=== PATIENT | male | born 1970 | race Caucasian/White ===

== ENCOUNTER 2021-03-09 07:43 | Emergency (ER) | payer OTHER ==
--- NOTE | 2021-03-09 08:33 | RAD REPORT ---
EXAM DESCRIPTION: RAD - Chest Single View - 03/09/2021 8:26 am CLINICAL HISTORY: DYSPNEA COMPARISON: No comparisons FINDINGS: Lines: None. Lungs: Patchy multifocal airspace disease, worse on the right side. Pleural: No significant pleural effusions or pneumothorax. Cardiac: The heart size is within normal limits. Bones: No acute fractures. Other: IMPRESSION: Bilateral airspace disease concerning for multifocal pneumonia, including Covid-19 .
[2021-03-09 09:00] LABS: Absolute Lymphocytes (CBC) 0.6 K/uL (0.7-4.9); Basophils % 0.3 % (0-1.3); Hematocrit 43.8 % (39.6-49.0); Lymphocytes % 10.1 % (15.3-44.8); MPV 9.2 fL (7.6-11.3); RBC Red Blood Cell Count 4.97 M/uL (4.33-5.43)
[2021-03-09 09:03] LABS: Protime INR 1.13
[2021-03-09 09:33] LABS: Albumin 2.9 g/dL (3.4-5.0); Bilirubin Direct 0.2 mg/dL (0-0.2); Bilirubin Total 0.3 mg/dL (0.2-1.0); C-Reactive Protein 61.5 mg/L (<3.00); Ferritin 601.3 ng/mL (26-388); Potassium 5.1 mmol/L (3.5-5.1); Protein, Total 6.9 g/dL (6.4-8.2); Troponin (Emerg Dept Use Only) 0.04 ng/mL (0.0-0.045)
[2021-03-09] MEDS ORDERED: NA CHLORIDE 0.9% 1,000 ML ONE (09:37)
--- NOTE | 2021-03-09 09:57 | RAD REPORT ---
EXAM DESCRIPTION: CT - Chest For Pe Angio - 03/09/2021 9:47 am CLINICAL HISTORY: COUGH COMPARISON: No comparisons FINDINGS: Chest Wall: No suspicious thyroid nodules or pathologic lymphadenopathy. Lungs: Mild to moderate patchy bilateral airspace disease. Pleura: No significant effusions or pneumothorax. Mediastinum/amado: No pathologic lymphadenopathy. Pulmonary arteries/Aorta: No filling defect identified. No aortic aneurysm. Heart: No significant pericardial effusion. Normal heart size. Upper abdomen: No acute abnormality. Bones: No acute abnormality. IMPRESSION: Negative for pulmonary embolism. Mild to moderate patchy bilateral airspace disease typi rogelio of Covid-19 pneumonia .
--- NOTE | 2021-03-09 10:09 | ER ---
Nurse's Notes [facility] Name: Martinez Pereira Age: 51 yrs Sex: Male : 1970 Arrival Date: 03/09/2021 Time: 07:47 Bed 30 Private MD: Diagnosis: Coronavirus infection, unspecified;Pneumonia due to SARS-associated coronavirus Presentation: 03/09 07:51 Chief complaint: Patient states: Covid positive, started getting sick . ll1 Bilateral pneumonia diagnosed at [place], also seen at [place]. Took Z-pack. Coronavirus screen: Client denies travel out of the [place] in the last 14 days. congestion, cough unrelated to allergies, difficulty breathing, fatigue, shortness of breath, Client presents with at least one sign or symptom that may indicate coronavirus-19. Standard/surgical mask placed on the client. Ebola Screen: Patient denies travel to an Ebola-affected area in the 21 days before illness onset. Resp Distress? Mild respiratory distress is noted. Initial Sepsis Screen: Does the patient meet any 2 criteria? No. Patient's initial sepsis screen is negative. Does the patient have a suspected source of infection? Yes: Productive cough/pneumonia. Risk Assessment: Do you want to hurt yourself or someone else? Patient reports no desire to harm self or others. Onset of symptoms was February 27, 2021. 07:51 Method Of Arrival: Wheelchair [facility] 07:51 Acuity: SAMUEL 3 ll1 Triage Assessment: 08:40 General: Appears in no apparent distress. Behavior is calm, cooperative, appropriate [facility] for age. Pain: Complains of pain in back Pain does not radiate. Pain currently is 6 out of 10 on a pain scale. Respiratory: No deficits noted. Reports shortness of breath at rest. 08:47 Respiratory: [facility] Historical: - Allergies: 07:54 No Known Allergies; ll1 - PMHx: 07:54 Diabetes mellitus; ll1 - PSHx: 07:54 None; ll1 - Immunization history:: Client reports having NOT received the Covid vaccine. Flu vaccine is not up to date. - Social history:: Smoking status: Patient denies any tobacco usage or history of. Screenin:46 Abuse screen: Denies threats or abuse. Nutritional screening: No deficits noted. kh1 Tuberculosis screening: No symptoms or risk factors identified. Fall Risk IV access (20 points). Assessment: 08:45 General: Appears in no apparent distress. comfortable. Cardiovascular: No deficits kh1 noted. Denies chest pain, lightheadedness, nausea. Respiratory: Airway is patent. Vital Signs: 07:51 BP 107 / 63; Pulse 83; Resp 22; Temp 97.9; Pulse Ox 92% ; Weight 74.84 kg; Height 6 ft. ll1 0 in. (182.88 cm); Pain 9/10; 08:40 BP 113 / 68; Pulse 86; Resp 18; Temp 97.6(O); Pulse Ox 96% on 2 lpm NC; kh1 07:51 Body Mass Index 22.38 (74.84 kg, 182.88 cm) ll1 ED Course: 07:47 Patient arrived in ED. ds1 07:49 Clarisa Leiva FNP-C is PHCP. kb 07:49 Lenny Trejo MD is Attending Physician. kb 07:51 Arm band placed on. ll1 07:54 Triage completed. ll1 08:26 CXR XRAY In Process Unspecified. EDMS 08:40 Birgit Ma is Primary Nurse. kh1 08:46 Patient has correct armband on for positive identification. Bed in low position. Call [facility] light in reach. Side rails up X 1. 08:46 Inserted saline lock: 20 gauge in right antecubital area, using aseptic technique. kh1 Blood collected. 08:47 No provider procedures requiring assistance completed. kh1 08:47 BMP Sent. kh1 08:47 C-Reactive Protein Sent. kh1 08:47 CBC with Diff Sent. kh1 08:48 D-Dimer Sent. kh1 08:48 Ferritin Sent. kh1 08:48 Flu Sent. kh1 08:48 LFT's Sent. kh1 08:48 Lipase Sent. kh1 08:48 PT-INR Sent. kh1 08:48 Procalcitonin Sent. kh1 08:48 Ptt, Activated Sent. kh1 08:48 Troponin (emerg Dept Use Only) Sent. kh1 09:47 CT Chest For PE Angio In Process Unspecified. EDMS Administered Medications: 09:24 Drug: NS 0.9% 1000 ml Route: IV; Rate: 1000 ml; Site: right antecubital; [facility] Outcome: 10:09 Discharge ordered by . kb 11:35 Patient left the ED. ss Signatures: Dispatcher [employer] EDMS Clarisa Leiva, [employer] INSPECTOR-Julieta Peralta ds1 Julianne Washington RN RN Margoth Guerrero RN RN ll1 Anil, Birgit [facility]
--- NOTE | 2021-03-09 10:09 | EDPHYS ---
Physician Documentation [facility] Name: Martinez Pereira Age: 51 yrs Sex: Male : 1970 Arrival Date: 03/09/2021 Time: 07:47 Bed 30 Private MD: ED Physician Lenny Trejo HPI: 03/09 09:21 This 51 yrs old Male presents to ER via Wheelchair with complaints of Cough, kb Congestion. 09:21 The patient or guardian reports cough, that is intermittent, described as mild, flu kb symptoms, low-grade fever, myalgias. Onset: The symptoms/episode began/occurred 11 day(s) ago. Severity of symptoms: At their worst the symptoms were moderate, in the emergency department the symptoms are unchanged. Modifying factors: The symptoms are alleviated by nothing, the symptoms are aggravated by nothing. Associated signs and symptoms: Pertinent positives: fever, Pertinent negatives: chest pain, diarrhea, ear ache, nausea, rhinorrhea, sore throat, vomiting. The patient has not experienced similar symptoms in the past. The patient has not recently seen a physician. Pt reports cough, congestion, fever, and malaise for 11 days. Was diagnosed with COVID on 02/27. States he felt really bad this morning so he went to [place]. Had a 103.9 temp and was given ibuprofen. States he feels much better now. Denies shortness of breath. States [place] sent him over here for admission and antibody infusion. . Historical: - Allergies: 07:54 No Known Allergies; ll1 - PMHx: 07:54 Diabetes mellitus; ll1 - PSHx: 07:54 None; ll1 - Immunization history:: Client reports having NOT received the Covid vaccine. Flu vaccine is not up to date. - Social history:: Smoking status: Patient denies any tobacco usage or history of. ROS: 09:27 Abdomen/GI: Negative for abdominal pain, nausea, vomiting, diarrhea, and constipation. kb 09:27 Constitutional: Positive for body aches, chills, fatigue, fever, malaise, poor PO intake. 09:27 ENT: Positive for sinus congestion. 09:27 Respiratory: Positive for cough, Negative for dyspnea on exertion, hemoptysis, orthopnea, pleurisy, shortness of breath, sputum production, wheezing. 09:27 All other systems are negative. Exam: 09:28 Constitutional: This is a well developed, well nourished patient who is awake, alert, kb and in no acute distress. Head/Face: Normocephalic, atraumatic. ENT: Moist Mucous membranes Cardiovascular: Regular rate and rhythm with a normal S1 and S2. No gallops, murmurs, or rubs. No pulse deficits. Respiratory: Respirations even and unlabored. No increased work of breathing, no retractions or nasal flaring. Skin: Warm, dry with normal turgor. Normal color. MS/ Extremity: Pulses equal, no cyanosis. Neurovascular intact. Full, normal range of motion. Neuro: Awake and alert, GCS 15, oriented to person, place, time, and situation. Moves all extremities. Normal gait. Psych: Awake, alert, with orientation to person, place and time. Behavior, mood, and affect are within normal limits. 09:28 ECG was reviewed by the Attending Physician. Vital Signs: 07:51 BP 107 / 63; Pulse 83; Resp 22; Temp 97.9; Pulse Ox 92% ; Weight 74.84 kg; Height 6 ft. ll1 0 in. (182.88 cm); Pain 9/10; 08:40 BP 113 / 68; Pulse 86; Resp 18; Temp 97.6(O); Pulse Ox 96% on 2 lpm NC; kh1 07:51 Body Mass Index 22.38 (74.84 kg, 182.88 cm) ll1 MDM: 07:57 Patient medically screened. kb 09:28 Data reviewed: vital signs, nurses notes. Data interpreted: Pulse oximetry: on room air kb is 94 %. Interpretation: normal. 10:07 Counseling: I had a detailed discussion with the patient and/or guardian regarding: the kb historical points, exam findings, and any diagnostic results supporting the discharge/admit diagnosis, lab results, radiology results, the need for outpatient follow up, a family practitioner, to return to the emergency department if symptoms worsen or persist or if there are any questions or concerns that arise at home. ED course: Pt's oxygen saturation 97-98% on room air. Pt states he is feeling good. Pt educated to purchase pulse ox and check it routinely. Verbal understanding received. . 03/09 07:57 Order name: CHETAN; Complete Time: 09:39 kb 09/07 07:57 Order name: C-Reactive Protein; Complete Time: 09:39 kb 03/09 07:57 Order name: CBC with Diff kb 0907 07:57 Order name: D-Dimer; Complete Time: 09:08 kb 03/09 07:57 Order name: Ferritin; Complete Time: 09:39 kb 03/09 07:57 Order name: Flu; Complete Time: 09:39 kb 03/09 07:57 Order name: LFT's; Complete Time: 09:39 kb 03/09 07:57 Order name: Lipase; Complete Time: 09:39 kb 03/09 07:57 Order name: PT-INR; Complete Time: 09:08 kb 03/09 07:57 Order name: Procalcitonin; Complete Time: 10:07 kb 03/09 07:57 Order name: Ptt, Activated; Complete Time: 09:08 kb 03/09 07:57 Order name: Troponin (emerg Dept Use Only); Complete Time: 09:39 kb 03/09 07:57 Order name: CXR XRAY; Complete Time: 08:53 kb 03/09 09:08 Order name: CT Chest For PE Angio; Complete Time: 09:59 kb 03/09 07:57 Order name: EKG; Complete Time: 07:59 kb 03/09 07:57 Order name: Cardiac monitoring; Complete Time: 08:47 kb 03/09 07:57 Order name: Droplet/Contact Precautions; Complete Time: 08:47 kb 03/09 07:57 Order name: EKG - Nurse/Tech; Complete Time: 09:24 kb 03/09 07:57 Order name: IV Start; Complete Time: 08:47 kb 03/09 07:57 Order name: Labs collected and sent; Complete Time: 08:47 kb 03/09 07:57 Order name: O2 Per Protocol; Complete Time: 08:47 kb 03/09 07:57 Order name: O2 Sat Monitoring; Complete Time: 08:47 kb 03/09 10:08 Order name: Misc. Order: ambulate pt and check sat kb EC: Rate is 71 beats/min. Rhythm is regular. QRS [place] is Normal. [place] interval is normal at kb 126 msec. QRS interval is normal at 100 msec. QT interval is normal at 404 msec. Administered Medications: :24 Drug: NS 0.9% 1000 ml Route: IV; Rate: 1000 ml; Site: right antecubital; kh1 Disposition: 03/10 08:28 Co-signature as Attending Physician, Lenny Trejo MD I agree with the assessment and merlin plan of care. Disposition Summary: 03/09/21 10:09 Discharge Ordered Location: Home kb Condition: Stable kb Diagnosis - Coronavirus infection, unspecified kb - Pneumonia due to SARS-associated coronavirus kb Followup: kb - With: Private Physician - When: 2 - 3 days - Reason: Recheck today's complaints, Continuance of care, Re-evaluation by your physician Followup: kb - With: Emergency Department - When: As needed - Reason: Worsening of condition Discharge Instructions: - Discharge Summary Sheet kb - Viral Respiratory Infection, [id number] kb - COVID-19 kb - COVID-19 Frequently Asked Questions kb - 10 Things You Can Do to Manage Your COVID-19 Symptoms at Home - [facility] kb Forms: - Medication Reconciliation Form kb - Thank You Letter kb - Antibiotic Education kb - Prescription Opioid Use kb Signatures: Dispatcher [employer] EDClarisa Aguiar, CERTIFIED OPHTHALMIC TECHNOLOGIST-C CERTIFIED OPHTHALMIC TECHNOLOGIST-Lenny Muniz MD MD cha Lewis, Lynsay, RN RN ll1 Birgit Ma [facility]
[2021-03-09 11:42] VITALS: BP 113/68; TEMP 97.6; O2SAT 96
[2021-03-09 13:27] LABS: Blood Morphology Comment NOT SEEN (NOT SEEN); Platelet Estimate ADEQ; Platelets, Giant FEW PRESENT; White Blood Cell Scan OK (OK)
--- NOTE | 2021-03-10 11:31 | EKG ---
Test Date: 2021-03-09 Test Time: 09:21:48 Appliquer Zigzag: SHELBY MEASUREMENT RESULTS: Intervals: Rate: 71 ND: 126 QRSD: 100 QT: 404 QTc: 439 [place]: P: 70 ND: 126 QRS: 34 T: 10 INTERPRETIVE STATEMENTS: Normal sinus rhythm Normal ECG No previous ECG available for comparison Electronically Signed On 03-10-21 11:27:07 CDT by Tad Larios
== END 2021-03-09 11:35 | disposition home or self-care (01) ==
LOC: ER 07:43
DX: U07.1 COVID-19 (principal); J12.82 Pneumonia due to coronavirus disease 2019; E11.9 Type 2 diabetes mellitus without complications
CPT/HCPCS: 93005; 85025; 80048; 36415; 85610; 85379; 80076; 85730; 84484; 82728; 83690; 84145; 86140; 87804 ×2; 71275; 71045; 99284; J7030

== ENCOUNTER 2024-08-14 10:28 | Emergency (ER) | payer OTHER, SELFPAY ==
[2024-08-14] MEDS ORDERED: NA CHLORIDE 0.9% 1,000 ML ONE (10:53)
[2024-08-14 11:23] LABS: Absolute Basophils 0.1 K/uL (0-0.5); Absolute Eosinophils 0.2 K/uL (0-0.5); Absolute Monocytes 0.6 K/uL (0.1-1.3); Basophils % 0.7 % (0-1.3); MCHC 34.9 g/dL (32.0-36.0); MPV 8.5 fL (7.6-11.3); Neutrophils % 65.8 % (41.7-73.7)
[2024-08-14 11:28] LABS: Absolute Lymphocytes (CBC) 1.9 K/uL (0.7-4.9); Absolute Neutrophil 5.3 K/uL (1.8-8.0); Eosinophils % 2.9 % (0-4.4); Hematocrit 44.1 % (39.6-49.0); Hemoglobin 15.4 g/dL (13.6-17.9); MCH 30.2 pg (27.0-35.0); MCV 86.4 fL (80-100); Monocytes % 7.6 % (3.3-12.3); Nucleated Red Blood Cells % 0.2 % (0-0); Platelets 313 thou/uL (152-406)
[2024-08-14 11:34] LABS: SARS-CoV-2 Antigen CONTROL BLUE LINE VIS/BG OK; SARS-CoV-2 Antigen Rapid Res Negative (Negative)
[2024-08-14 11:39] LABS: ALT/SGPT 17 U/L (16-61); Albumin 3.6 g/dL (3.4-5.0); Albumin/Globulin Ratio 0.9 (1.1-1.8); Alkaline Phosphatase 101 U/L (45-117); Anion Gap 8.1 mEq/L (5.0-15.0); BUN Blood Urea Nitrogen 13 mg/dL (7-18); Bicarbonate 31 mEq/L (21-32); Bilirubin Total 0.6 mg/dL (0.2-1.0); Globulin 4.1 g/dL (2.3-3.5); Glomerular Filtration Rate 76 ml/min (=/>90); Glucose Level 270 mg/dL (74-106); Potassium 4.1 mEq/L (3.5-5.1); Protein, Total 7.7 g/dL (6.4-8.2); Sodium Level 135 mEq/L (136-145)
[2024-08-14 11:40] LABS: AST/SGOT < 10 U/L (15-37)
--- NOTE | 2024-08-14 11:55 | RAD REPORT ---
EXAM: CT brain without contrast HISTORY: Headache COMPARISON: None TECHNIQUE: Multiple contiguous axial images were obtained and a CT of the brain without contrast.. Sagittal and coronal reconstruction performed. Automated exposure control, adjustment of the mA and/or kV according to patient size, and/or iterative reconstruction. Unless otherwise specified, incidental f indings do not require dedicated imaging follow-up FINDINGS: An intracranial bleed is not seen Ventricles are normal caliber No extra-axial fluid collection noted No significant hypodensity within the brain Left maxillary sinus almost completely opacified. IMPRESSION: No acute intracranial abnormality noted. Marked left maxillary sinusitis If the patient continues to have symptoms to suggest an acute intracranial abnormality then MRI of th e brain would be recommended.
--- NOTE | 2024-08-14 11:56 | RAD REPORT ---
EXAMINATION: CT MAXILLOFACIAL WITHOUT CONTRAST CLINICAL INDICATION: Headache and fever TECHNIQUE: Axial images were obtained through the facial bones and orbits without intravenous contras t. Sagittal and coronal reconstructions were created from the data. One or more of the following dose reduction techniques were used: Automated exposure control, adjustment of the mA and/or kV accor ding to patient size, and/or iterative reconstruction. Unless otherwise specified, incidental findings do not require dedicated imaging follow-up. COMPARISON: No prior exam. FINDINGS: Marked mucoperiosteal thickening left maxillary sinus. The ostiomeatal complex is occluded. Right maxillary, ethmoid, frontal and sphenoid sinuses clear. Right ostiomeatal complex patent Bilateral rossi bullosa. Nasal septum deviated towards the left. IMPRESSION: Marked chronic left maxillary sinusitis with occlusion of the left ostiomeatal complex
--- NOTE | 2024-08-14 12:03 | RAD REPORT ---
Procedure: Chest Pa And Lat (2 Views) HISTORY: Cough COMPARISON: 2020 FINDINGS: The lungs appear clear of acute infiltrate. No significant pleural effusion noted. The heart is normal size. IMPRESSION: No acute abnormality is displayed.
[2024-08-14] MEDS ORDERED: NA CHLORIDE 0.9% 100 ML ONE (14:05)
[2024-08-14] MEDS ORDERED: CEFTRIAXONE 1000 MG/VIAL ONE ×2 (14:05→15:35)
[2024-08-14] MEDS ORDERED: AMOX/K CLAV 875 MG TAB ONE (14:05)
--- NOTE | 2024-08-14 15:32 | ER ---
Nurse's Notes [facility] Name: Martinez Pereira Age: 54 yrs Sex: Male : 1970 Arrival Date: 08/14/2024 Time: 10:28 Bed 12 Private MD: Diagnosis: Acute maxillary sinusitis-OSTIOMEATAL COMPLEX IS OCCULDED;Dental root caries;Dental caries, unspecified;Type 2 diabetes mellitus with hyperglycemia Presentation: 08/14 10:53 Chief complaint: Patient states: Intermittent lightheadedness, SOB for the last week. jl7 Coronavirus screen: At this time, the client does not indicate any symptoms associated with coronavirus-19. Ebola Screen: No symptoms or risks identified at this time. Initial Sepsis Screen: Does the patient meet any 2 criteria? No. Patient's initial sepsis screen is negative. Does the patient have a suspected source of infection? No. Patient's initial sepsis screen is negative. Risk Assessment: Do you want to hurt yourself or someone else? Patient reports no desire to harm self or others. Onset of symptoms is unknown. 10:53 Method Of Arrival: Ambulatory [facility] 10:53 Acuity: SAMUEL 3 jl7 Triage Assessment: 10:55 General: Appears in no apparent distress. uncomfortable, Behavior is calm, cooperative, jl7 appropriate for age. Pain: Denies pain. Respiratory: Reports shortness of breath Onset: The symptoms/episode began/occurred at an unknown time. the patient has mild shortness of breath. Historical: - Allergies: 10:55 No Known Allergies; jl7 - Home Meds: 10:55 None [Active]; jl7 - PMHx: 10:55 diabetes mellitus; jl7 - PSHx: 10:55 None; jl7 - Immunization history:: Adult Immunizations unknown. - Infectious Disease History:: Denies. - Social history:: Smoking status: Patient denies any tobacco usage or history of. Screenin:08 [facility] ED Fall Risk Assessment (Adult) History of falling in the last 3 months, ll1 including since admission No falls in past 3 months (0 pts) Confusion or Disorientation No (0 pts) Intoxicated or Sedated No (0 pts) Impaired Gait No (0 pts) Mobility Assist Device Used No (0 pt) Altered Elimination No (0 pt) Score/Fall Risk Level 0 - 2 = Low Risk Oriented to surroundings, Maintained a safe environment. Abuse screen: Denies threats or abuse. Denies injuries from another. Nutritional screening: No deficits noted. Tuberculosis screening: No symptoms or risk factors identified. Assessment: 16:08 Reassessment: Patient appears in no apparent distress at this time. Patient and/or ll1 family updated on plan of care and expected duration. Pain level reassessed. Patient is alert, oriented x 3, equal unlabored respirations, skin warm/dry/pink. Patient states feeling better. Cardiovascular: Rhythm is regular. Respiratory: Airway is patent Respiratory effort is even, unlabored, Vital Signs: 10:53 BP 136 / 83; Pulse 103; Resp 17; Temp 98.5; Pulse Ox 98% ; Weight 77.11 kg; Height 6 jl7 ft. 0 in. ; Pain 0/10; 16:08 BP 135 / 75; Pulse 85; Resp 17; Pulse Ox 98% ; ll1 10:53 Body Mass Index 23.06 (77.11 kg, 182.88 cm) jl7 10:53 Pain Scale: Adult 7 NIH Stroke Scale Scores: 11:12 NIHSS Score: 0 [facility] ED Course: 10:30 Patient arrived in ED. im 10:48 Lenny Trejo MD is Attending Physician. merlin 10:55 Triage completed. jl7 10:55 Arm band placed on right wrist. jl7 10:56 Patient placed in waiting room, Patient notified of wait time. jl7 11:30 Initial lab(s) drawn, by ED staff, sent to lab. Inserted saline lock: 20 gauge in left jl7 antecubital area, using aseptic technique. Blood collected. Flushed with 10 mL NS. 11:35 CT Head Brain wo Cont In Process Unspecified. EDMS 11:38 Facial Bones W/ Mpr In Process Unspecified. EDMS 11:41 Chest Pa And Lat (2 Views) XRAY In Process Unspecified. EDMS 13:55 First set of blood cultures drawn by me. bc6 13:58 Milli Chacon, DENNIS is Primary Nurse. jl7 15:31 Rosaline Jacinto MD is Referral Physician. merlin 16:08 Patient has correct armband on for positive identification. Provided Education on: ll1 discharge. 16:08 No provider procedures requiring assistance completed. IV discontinued, intact, ll1 bleeding controlled, No redness/swelling at site. Pressure dressing applied. Administered Medications: 11:30 Drug: NS 0.9% IV 1000 ml IV at 1000 ml once; to be given as a bolus over 60 minutes jl7 Route: IV; Rate: 1000 ml; Site: left antecubital; 12:30 Follow up: Response: No adverse reaction; IV Status: Completed infusion; IV Intake: jl7 1000ml 14:09 Drug: Rocephin IV 1 grams IV at per protocol once; Given slow IV push per pharmacy jl7 instructions Route: IV; Rate: per protocol; Site: left antecubital; 15:40 Follow up: Response: No adverse reaction; IV Status: Completed infusion; IV Intake: [id number] 14:09 Drug: Amoxicillin-Clavulanate PO 875 mg PO once Route: PO; jl7 15:40 Follow up: Response: No adverse reaction ll1 15:40 Drug: Rocephin IV 1 grams IV at per protocol once; Given slow IV push per pharmacy ll1 instructions Route: IV; Rate: per protocol; Site: left antecubital; 15:55 Follow up: Response: No adverse reaction; IV Status: Completed infusion ll1 Medication: 16:08 VIS not applicable for this client. ll1 Intake: 12:30 IV: 1000ml; Total: 1000ml. jl7 15:40 IV: 20ml; Total: 1020ml. ll1 Outcome: 15:31 Discharge ordered by . merlin 16:08 Discharged to home ambulatory, ll1 16:08 Condition: stable 16:08 Discharge instructions given to patient, family, Instructed on discharge instructions, follow up and referral plans. medication usage, Demonstrated understanding of instructions, follow-up care, medications, Prescriptions given X 3, 16:10 Patient left the ED. ll1 NIH Stroke Scale - NIH Stroke Score Date: 08/14/2024 Time: 11:12 Total Score = 0 10. Dysarthria (speech clarity - read or repeat words) - 0(Normal) 11. Extinction and Inattention (visual/tactile/auditory/spatial/personal) - 0(No abnormality) 1a. Level of Consciousness (LOC) - 0(Alert) 1b. Level of Consciousness (LOC) (Month \T\ Age) - 0(Both) 1c. LOC Commands (Open \T\ Closes Eyes/[employer]) - 0(Both) 2. Best Gaze (Lateral Gaze Paresis) - 0(Normal) 3. Visual Field Loss - 0(No visual loss) 4. Facial Palsy - 0(Normal) 5a. Left Arm: Motor (10-second hold) - 0(No drift) 5b. Right Arm: Motor (10-second hold) - 0(No drift) 6a. Left Leg: Motor (5-second hold - always test supine) - 0(No drift) 6b. Right Leg: Motor (5-second hold - always test supine) - 0(No drift) 7. Limb Ataxia (finger/nose \T\ heel/phillips - test with eyes open) - 0(Absent) 8. Sensory Loss (pinprick arms/legs/face) - 0(Normal) 9. Best Language: Aphasia (description/naming/reading) - 0(No aphasia) Initials: merlin Signatures: Dispatcher [employer] EDMS Lenny Trejo MD MD cha Leal, Jahala, RN RN jl7 Margoth Miller RN RN ll1 Jocelynn Gonzalez Casandra Valente Corrections: (The following items were deleted from the chart) 11:38 11:35 In radiology for Facial Bones W/ Con \T\ MPR+CT.RAD.BRZ. EDMS EDMS
--- NOTE | 2024-08-14 15:32 | EDPHYS ---
Physician Documentation [facility] Name: Martinez Pereira Age: 54 yrs Sex: Male : 1970 Arrival Date: 08/14/2024 Time: : Bed 12 Private MD: ED Physician Lenny Trejo HPI: 08/14 11:12 This 54 yrs old Male presents to ER via Ambulatory with complaints of Flu merlin Symptoms, Shortness Of Breath. 11:12 The patient has shortness of breath at rest, with light activity. Onset: The merlin symptoms/episode began/occurred 5 day(s) ago. Duration: The symptoms are continuous, but are steadily getting better. The patient's shortness of breath has no apparent modifying factors. Associated signs and symptoms: Pertinent positives: non-productive cough, fever. Severity of symptoms: At their worst the symptoms were moderate in the emergency department the symptoms are unchanged. The patient has not experienced similar symptoms in the past. Historical: - Allergies: 10:55 No Known Allergies; jl7 - Home Meds: 10:55 None [Active]; jl7 - PMHx: 10:55 diabetes mellitus; jl7 - PSHx: 10:55 None; jl7 - Immunization history:: Adult Immunizations unknown. - Infectious Disease History:: Denies. - Social history:: Smoking status: Patient denies any tobacco usage or history of. ROS: 11:12 Constitutional: Negative for fever, chills, and weight loss, Eyes: Negative for injury, merlin pain, redness, and discharge, Neck: Negative for injury, pain, and swelling, Cardiovascular: Negative for chest pain, palpitations, and edema, Respiratory: Negative for shortness of breath, cough, wheezing, and pleuritic chest pain, Abdomen/GI: Negative for abdominal pain, nausea, vomiting, diarrhea, and constipation, Back: Negative for injury and pain, : Negative for injury, bleeding, discharge, and swelling, Skin: Negative for injury, rash, and discoloration, Neuro: Negative for headache, weakness, numbness, tingling, and seizure, Psych: Negative for depression, anxiety, suicide ideation, homicidal ideation, and hallucinations, Allergy/Immunology: Negative for hives, rash, and allergies, Endocrine: Negative for neck swelling, polydipsia, polyuria, polyphagia, and marked weight changes, Hematologic/Lymphatic: Negative for swollen nodes, abnormal bleeding, and unusual bruising, 11:12 ENT: Positive for dental pain, 11:12 MS/extremity: Positive for pain, of the right arm, left arm, right leg and left leg, Exam: 11:12 Constitutional: This is a well developed, well nourished patient who is awake, alert, merlin and in no acute distress. Eyes: Pupils equal round and reactive to light, extra-ocular motions intact. Lids and lashes normal. Conjunctiva and sclera are non-icteric and not injected. Cornea within normal limits. Periorbital areas with no swelling, redness, or edema. ENT: Nares patent. No nasal discharge, no septal abnormalities noted. Tympanic membranes are normal and external auditory canals are clear. Oropharynx with no redness, swelling, or masses, exudates, or evidence of obstruction, uvula midline. Mucous membranes moist. Neck: Trachea midline, no thyromegaly or masses palpated, and no cervical lymphadenopathy. Supple, full range of motion without nuchal rigidity, or vertebral point tenderness. No Meningismus. Chest/axilla: Normal chest wall appearance and motion. Nontender with no deformity. No lesions are appreciated. Cardiovascular: Regular rate and rhythm with a normal S1 and S2. No gallops, murmurs, or rubs. Normal PMI, no JVD. No pulse deficits. Abdomen/GI: Soft, non-tender, with normal bowel sounds. No distension or tympany. No guarding or rebound. No evidence of tenderness throughout. Back: No spinal tenderness. No costovertebral tenderness. Full range of motion. Skin: Warm, dry with normal turgor. Normal color with no rashes, no lesions, and no evidence of cellulitis. MS/ Extremity: Pulses equal, no cyanosis. Neurovascular intact. Full, normal range of motion., bilateral aka Neuro: Awake and alert, GCS 15, oriented to person, place, time, and situation. Cranial nerves II-XII grossly intact. Motor strength 5/5 in all extremities. Sensory grossly intact. Cerebellar exam normal. Normal gait. Psych: Awake, alert, with orientation to person, place and time. Behavior, mood, and affect are within normal limits. 11:12 Respiratory: the patient does not display signs of respiratory distress, Respirations: normal, Breath sounds: rhonchi, that are mild, are scattered, stridor, is not appreciated, + upper airway congestion. Respiratory rate: 17 11:12 Musculoskeletal/extremity: Circulation is intact in all extremities. Sensation intact. Compartment Syndrome exam of affected extremity: is normal. Joints: All joints appear normal with full range of motion. Weight bearing: able to fully bear weight, Tendon exam: specific tendon testing normal through active and passive range of motion Vital Signs: 10:53 BP 136 / 83; Pulse 103; Resp 17; Temp 98.5; Pulse Ox 98% ; Weight 77.11 kg; Height 6 jl7 ft. 0 in. ; Pain 0/10; 16:08 BP 135 / 75; Pulse 85; Resp 17; Pulse Ox 98% ; ll1 10:53 Body Mass Index 23.06 (77.11 kg, 182.88 cm) [facility] 10[facility] Scale: [facility] NIH Stroke Scale Scores: 11:12 NIHSS Score: 0 merlin MDM: 10:48 Medical Screening Exam initiated merlin 11:23 Differential diagnosis: Bronchitis dental caries, gingivitis, dental abscess, merlin gingivostomatitis, viral Infection, bacterial infection, URI, pneumonia UTI, pneumonia, Sepsis. Antibiotic administration: The patient is discharged and will get outpatient antibiotics, Amoxicillin. Differential Diagnosis: Bronchitis Influenza Upper Respiratory Infection Sinusitis Pharyngitis Asthma Exacerbation Viral Syndrome Pneumonia. Immunization status: Influenza vaccine: Not up to date due to patient refusal. Data reviewed: vital signs, nurses notes, lab test result(s), EKG, radiologic studies. Consideration of Admission/Observation Escalation of care including admission/observation considered. I considered the following discharge prescriptions or medication management in the emergency department Medications were administered in the Emergency Department. See MAR. Independent interpretation of the following test(s) in the Emergency Department X-Ray: My interpretation is cxr. 08/14 10:49 Order name: Flu; Complete Time: 14:59 [facility] 08/14 10:49 Order name: SARS RAPID; Complete Time: 14:59 [facility] 08/14 10:49 Order name: CBC with Diff; Complete Time: 14:59 [facility] 08/14 10:49 Order name: Comprehensive Metabolic Panel; Complete Time: 14:59 [facility] 08/14 11:11 Order name: Blood Culture Adult (2) [facility] 08/14 11:11 Order name: Lactate w/ 2H reflex if indic.; Complete Time: 14:59 [facility] 08/14 10:49 Order name: Chest Pa And Lat (2 Views) XRAY; Complete Time: 14:59 [facility] 08/14 11:11 Order name: CT Head Brain wo Cont; Complete Time: 14:59 [facility] 08/14 11:38 Order name: Facial Bones W/ Mpr; Complete Time: 14:59 EDMS Administered Medications: 11:30 Drug: NS 0.9% IV 1000 ml IV at 1000 ml once; to be given as a bolus over 60 minutes jl7 Route: IV; Rate: 1000 ml; Site: left antecubital; 12:30 Follow up: Response: No adverse reaction; IV Status: Completed infusion; IV Intake: jl7 1000ml 14:09 Drug: Rocephin IV 1 grams IV at per protocol once; Given slow IV push per pharmacy jl7 instructions Route: IV; Rate: per protocol; Site: left antecubital; 15:40 Follow up: Response: No adverse reaction; IV Status: Completed infusion; IV Intake: [id number] 14:09 Drug: Amoxicillin-Clavulanate PO 875 mg PO once Route: PO; jl7 15:40 Follow up: Response: No adverse reaction ll1 15:40 Drug: Rocephin IV 1 grams IV at per protocol once; Given slow IV push per pharmacy ll1 instructions Route: IV; Rate: per protocol; Site: left antecubital; 15:55 Follow up: Response: No adverse reaction; IV Status: Completed infusion ll1 Disposition Summary: 08/14/24 15:31 Discharge Ordered Notes: Location: Home merlin Problem: new merlin Symptoms: have improved merlin Condition: Stable merlin Diagnosis - Acute maxillary sinusitis - OSTIOMEATAL COMPLEX IS OCCULDED merlin - Dental root caries merlin - Dental caries, unspecified merlin - Type 2 diabetes mellitus with hyperglycemia merlin Followup: merlin - With: Private Physician - When: 2 - 3 days - Reason: Recheck today's complaints, Continuance of care, Re-evaluation by your physician Followup: merlin - With: Rosaline Jacinto MD - When: 2 - 3 days - Reason: Recheck today's complaints, Re-evaluation by your physician Discharge Instructions: - Discharge Summary Sheet merlin - Dental Pain merlin - Sinusitis, Adult merlin - Sinusitis, Adult, [id number] merlin - Tobacco Use Disorder merlin - Diabetes Mellitus and Nutrition, Adult merlin - Dental Caries, Adult, [id number] [facility] Forms: - Medication Reconciliation Form [facility] - Antibiotic Education [facility] - Prescription Opioid Use [facility] - Patient Portal Instructions [facility] - Leadership Thank You Letter [facility] Prescriptions: - Amoxicillin 875 mg Oral tablet - take 1 tablet ORAL route every 12 hours for 14 days; 28 tablet; Refills: 0, [facility] Product Selection Permitted - Ibuprofen 600 mg Oral tablet - take 1 tablet ORAL route every 6 hours As needed take with food; 20 tablet; [facility] Refills: 0, Product Selection Permitted - Bactrim DS 800-160 mg Oral Tablet - take 1 tablet ORAL route every 12 hours for 7 days; 14 tablet; Refills: 0, [facility] Product Selection Permitted NIH Stroke Scale - NIH Stroke Score Date: 08/14/2024 Time: 11:12 Total Score = 0 10. Dysarthria (speech clarity - read or repeat words) - 0(Normal) 11. Extinction and Inattention (visual/tactile/auditory/spatial/personal) - 0(No abnormality) 1a. Level of Consciousness (LOC) - 0(Alert) 1b. Level of Consciousness (LOC) (Month \T\ Age) - 0(Both) 1c. LOC Commands (Open \T\ Closes Eyes/Dicer Machine Operator) - 0(Both) 2. Best Gaze (Lateral Gaze Paresis) - 0(Normal) 3. Visual Field Loss - 0(No visual loss) 4. Facial Palsy - 0(Normal) 5a. Left Arm: Motor (10-second hold) - 0(No drift) 5b. Right Arm: Motor (10-second hold) - 0(No drift) 6a. Left Leg: Motor (5-second hold - always test supine) - 0(No drift) 6b. Right Leg: Motor (5-second hold - always test supine) - 0(No drift) 7. Limb Ataxia (finger/nose \T\ heel/phillips - test with eyes open) - 0(Absent) 8. Sensory Loss (pinprick arms/legs/face) - 0(Normal) 9. Best Language: Aphasia (description/naming/reading) - 0(No aphasia) Initials: [facility] Signatures: Dispatcher [employer] Lenny Morgan MD MD cha Leal, Jahala, RN RN jl7 Margoth Miller RN RN ll1 Corrections: (The following items were deleted from the chart) 11:25 11:25 EC Echo Doppler W/Color Flow+ECHO.RAD.BRZ ordered. EDMS EDMS 11:38 11:12 Facial Bones W/ Con \T\ MPR+CT.RAD.BRZ ordered. EDMS EDMS 16: 10:50 Urinalysis W/Microscopic+U.LAB.BRZ ordered. EDMS EDMS 16: 11:12 Urinalysis+U.LAB.BRZ ordered. EDMS EDMS
[2024-08-14] MEDS ORDERED: NA CHLORIDE 0.9% 50 ML ONE (15:35)
[2024-08-14 17:16] VITALS: TEMP 98.5; O2SAT 98
[2024-08-14 17:22] VITALS: BP 135/75
--- NOTE | 2024-08-15 06:58 | ECHO ---
HEIGHT: 6 ft 0 in WEIGHT: 170 lb 0 oz DATE OF STUDY: 08/14/[address]: Lenny Trejo MD 2-DIMENSIONAL: YES M.MODE: YES DOPPLER: YES COLOR FLOW: YES TDS: PORTABLE: YES DEFINITY: BUBBLE STUDY: DIAGNOSIS: FEVER, ENDO CARDIAC HISTORY: CATHERIZATION: NO SURGERY: NO PROSTHETIC VALVE: NO PACEMAKER: NO MEASUREMENTS (cm) DIASTOLIC (NORMALS) SYSTOLIC (NORMALS) IVSd 1.0 (0.6-1.2) LA Diam 2.3 (1.9-4.0) LVEF 60-65% LVIDd 4.7 (3.5-5.7) LVIDs 3.3 (2.0-3.5) %FS 30% LVPWd 1.1 (0.6-1.2) Ao Diam 2.8 (2.0-3.7) 2 DIMENSIONAL ASSESSMENT: RIGHT ATRIUM: NORMAL LEFT ATRIUM: NORMAL RIGHT VENTRICLE: NORMAL LEFT VENTRICLE: NORMAL TRICUSPID VALVE: NORMAL MITRAL VALVE: NORMAL PULMONIC VALVE: NOT SEEN AORTIC VALVE: NORMAL PERICARDIAL EFFUSION: NONE AORTIC ROOT: NORMAL LEFT VENTRICULAR WALL MOTION: NORMAL DOPPLER/COLOR FLOW: NORMAL COMMENTS: 1. NORMAL LEFT VENTRICULAR SYSTOLIC FUNCTION, EJECTION FRACTION 60-65%, NORMAL WALL MOTION 2. NORMAL DIASTOLIC FUNCTION 3. NORMAL VALVES FUNCTIONING TECHNOLOGIST: RUDOLPH CASAREZ
== END 2024-08-14 16:10 | disposition home or self-care (01) ==
LOC: ER 10:28
DX: J01.00 Acute maxillary sinusitis, unspecified (principal); E11.65 Type 2 diabetes mellitus with hyperglycemia; K02.7 Dental root caries; K02.9 Dental caries, unspecified
CPT/HCPCS: 36415; 70450; 70486; 71046; 76377; 80053; 83605; 85025; 87040; 87804; 87811; 93306; J0696; J7030